=== PATIENT | female | born 1940 | race Two or more races ===

== ENCOUNTER 2017-09-29 00:11 | Observation (INO) | payer OTHER, MEDICAID ==
[2017-09-29] VITALS (14 sets, daily range): BP systolic 159–198; BP diastolic 70–90; PULSE 49–87; RESP 16–18; TEMP 97.9–98.2; O2SAT 93–99
[~2017-09-29] VITALS: Ht 154.9 cm; Wt 67.0 kg
[2017-09-29] MEDS ORDERED: METO25TA3 PO (00:32)
[2017-09-29] MEDS ORDERED: ATOR10TA15 PO (00:32)
[2017-09-29] MEDS ORDERED: ASPI-516 CHEW (00:32)
[2017-09-29] MEDS ORDERED: ASPIRIN 81 MG CHEW TAB PO ONE (01:00)
[2017-09-29] MEDS ORDERED: SODIUM CHLORIDE 0.9% FLUSH 10 ML FLUSH IVF PRN (01:00)
[2017-09-29] MEDS ORDERED: NITROGLYCERIN 0.4 MG SL 25 TABS/BTL SL ONE (01:00)
[2017-09-29 01:22] LABS: AUTOMATED NEUTROPHIL # 3.7 TH/MM3 (1.8-7.7); BASOPHIL # 0.1 TH/MM3 (0-0.2); BASOPHIL % 1.1 % (0.0-2.0); EOSINOPHIL # 0.1 TH/MM3 (0-0.4); EOSINOPHIL % 2.3 % (0.0-4.0); HEMATOCRIT 38.8 % (35.0-46.0); HEMOGLOBIN 13.3 GM/DL (11.6-15.3); LYMPH % 27.9 % (9.0-44.0); LYMPHOCYTE # 1.7 TH/MM3 (1.0-4.8); MEAN CELL VOLUME 91.4 FL (80.0-100.0); MEAN CORPUSCULAR HEMOGLOBIN 31.3 PG (27.0-34.0); MEAN CORPUSCULAR HGB CONC 34.3 % (32.0-36.0); MEAN PLATELET VOLUME 8.5 FL (7.0-11.0); MONO % 9.7 % (0.0-8.0); MONOCYTE # 0.6 TH/MM3 (0-0.9); PLATELET COUNT 192 TH/MM3 (150-450); RED BLOOD COUNT 4.24 MIL/MM3 (4.00-5.30); RED CELL DISTRIBUTION WIDTH 13.1 % (11.6-17.2); WHITE BLOOD COUNT 6.2 TH/MM3 (4.0-11.0)
--- NOTE | 2017-09-29 01:22 | PD ---
HPI Chief Complaint: Chest Pain Time Seen by Provider: 00:41 Travel History International Travel<30 days: No Contact w/Intl Traveler<30days: No Traveled to known affect area: No History of Present Illness HPI The patient is a 77-year-old female who presents to the emergency department for chest pain and shortness of breath at 3 days' duration. The patient states she had some anterior right sided chest pain that was nonradiating several days ago. The pain was described as "pain", nonradiating, and associated with shortness of breath. The patient denied any nausea, vomiting, or diaphoresis. She denies any exertional symptoms. However, she developed chest pain once again tonight with mild shortness of breath. The patient does have a history of coronary artery disease with previous CABG. The patient is currently relocating, does not have a local primary physician or manager pet. The patient does have a history of CAD, CABG, and hyperlipidemia. She denies any known history of diabetes or tobacco use. The patient denies any cough, fever, chills, or sweats. She denies any trauma to the chest wall. The patient denies recent hospitalizations, surgeries, or history of PE/DVT. She did travel to [place] via car over 2 days' duration several months ago. She denies any significant edema to lower extremities. [facility] Past Medical History Medical History: Denies Significant Hx Hx Anticoagulant Therapy: Yes (ASA) Cardiovascular Problems: Yes ([place], CABG) Past Surgical History Cardiac Surgery: Yes (CABG) Hysterectomy: Yes Social History Alcohol Use: Yes Tobacco Use: No Substance Use: No Allergies-Medications (Allergen,Severity, Reaction): Coded Allergies: No Known Allergies (Verified Allergy, Unknown, 09/29/17) Reported Meds & Prescriptions Reported Meds & Active Scripts Active Reported Aspirin 81 Mg Chew 81 Mg CHEW DAILY Metoprolol Tartrate 25 Mg Tab 25 Mg PO DAILY Atorvastatin (Atorvastatin Calcium) 10 Mg Tab 10 Mg PO HS Review of Systems Except as stated in HPI: all other systems reviewed are Neg General / Constitutional: No: Fever Cardiovascular: Positive: Chest Pain or Discomfort, No: Diaphoresis, Dyspnea on exertion Respiratory: Positive: Shortness of Breath Gastrointestinal: No: Nausea, Vomiting, Abdominal Pain Musculoskeletal: No: Weakness Neurologic: No: Dizziness Physical Exam Narrative GENERAL: Awake, alert, nontoxic-appearing 77-year-old female who appears her stated age and is in no acute respiratory distress. SKIN: Focused skin assessment warm/dry. HEAD: Atraumatic. Normocephalic. EYES: Pupils equal and round. No scleral icterus. No injection or drainage. ENT: No nasal bleeding or discharge. Mucous membranes pink and moist. NECK: Trachea midline. No JVD. CARDIOVASCULAR: Regular, bradycardic with a heart rate in the 50s. Systolic murmur noted. Well-healed sternal scar. RESPIRATORY: No accessory muscle use. Clear to auscultation. Breath sounds equal bilaterally. GASTROINTESTINAL: Abdomen soft, non-tender, nondistended. No rebound tenderness. MUSCULOSKELETAL: No obvious deformities. No clubbing. No cyanosis. No edema. Well-healed scar medial aspect right lower extremity. NEUROLOGICAL: Awake and alert. No obvious cranial nerve deficits. Motor grossly within normal limits. Normal speech. PSYCHIATRIC: Appropriate mood and affect; insight and judgment normal. Data Data Last Documented VS Vital Signs Date Time Temp Pulse Resp B/P (MAP) Pulse Ox O2 Delivery O2 Flow Rate FiO2 09/29/17 01:09 55 18 167/73 (104) 97 Room Air 09/29/17 00:11 98.2 Orders Orders Electrocardiogram (09/29/17 00:59) Ckmb (Isoenzyme) Profile (09/29/17 00:59) Complete Blood Count With Diff (09/29/17 00:59) Comprehensive Metabolic Panel (09/29/17 00:59) Magnesium (Mg) (09/29/17 00:59) Prothrombin Time / Inr (Pt) (09/29/17 00:59) Act Partial Throm Time (Ptt) (09/29/17 00:59) Troponin I (09/29/17 00:59) Chest, Single Ap (09/29/17 00:59) Ecg Monitoring (09/29/17 00:59) Bilateral Bp Monitoring (09/29/17 00:59) Iv Access Insert/Monitor (09/29/17 00:59) Oximetry (09/29/17 00:59) Oxygen Administration (09/29/17 00:59) Aspirin Chew (Aspirin Chew) (09/29/17 01:00) Sodium Chloride 0.9% Flush (Ns Flush) (09/29/17 01:00) Nitroglycerin Sl (Nitrostat Sl) (09/29/17 01:00) CKMB (09/29/17 01:10) CKMB% (09/29/17 01:10) Admit Order (Ed Use Only) (09/29/17 02:32) Labs Laboratory Tests Test 09/29/17 01:10 White Blood Count 6.2 TH/MM3 Red Blood Count 4.24 MIL/MM3 Hemoglobin 13.3 GM/DL Hematocrit 38.8 % Mean Corpuscular Volume 91.4 FL Mean Corpuscular Hemoglobin 31.3 PG Mean Corpuscular Hemoglobin Concent 34.3 % Red Cell Distribution Width 13.1 % Platelet Count 192 TH/MM3 Mean Platelet Volume 8.5 FL Neutrophils (%) (Auto) 59.0 % Lymphocytes (%) (Auto) 27.9 % Monocytes (%) (Auto) 9.7 % Eosinophils (%) (Auto) 2.3 % Basophils (%) (Auto) 1.1 % Neutrophils # (Auto) 3.7 TH/MM3 Lymphocytes # (Auto) 1.7 TH/MM3 Monocytes # (Auto) 0.6 TH/MM3 Eosinophils # (Auto) 0.1 TH/MM3 Basophils # (Auto) 0.1 TH/MM3 CBC Comment DIFF FINAL Differential Comment Prothrombin Time 10.9 SEC Prothromb Time International Ratio 1.1 RATIO Activated Partial Thromboplast Time 26.3 SEC Blood Urea Nitrogen 13 MG/DL Creatinine 0.78 MG/DL Random Glucose 99 MG/DL Total Protein 7.3 GM/DL Albumin 3.9 GM/DL Calcium Level 8.7 MG/DL Magnesium Level 1.9 MG/DL Alkaline Phosphatase 70 U/L Aspartate Amino Transf (AST/SGOT) 10 U/L Alanine Aminotransferase (ALT/SGPT) 19 U/L Total Bilirubin 0.6 MG/DL Sodium Level 144 MEQ/L Potassium Level 3.5 MEQ/L Chloride Level 109 MEQ/L Carbon Dioxide Level 25.5 MEQ/L Anion Gap 10 MEQ/L Estimat Glomerular Filtration Rate 71 ML/MIN Total Creatine Kinase 105 U/L Creatine Kinase MB 1.2 NG/ML Troponin I LESS THAN 0.02 NG/ML MDM Medical Decision Making Medical Screen Exam Complete: Yes Emergency Medical Condition: Yes Medical Record Reviewed: Yes Interpretation(s) EKG reveals sinus bradycardia with first-degree AV block. Q wave noted in lead V2. Last Impressions Chest X-Ray 09/29/17 0059 Signed Impressions: Service Date/Time: Friday, September 29, 2017 01:14 - CONCLUSION: No acute disease. Sin Chapman MD Laboratory Tests Test 09/29/17 01:10 White Blood Count 6.2 TH/MM3 Red Blood Count 4.24 MIL/MM3 Hemoglobin 13.3 GM/DL Hematocrit 38.8 % Mean Corpuscular Volume 91.4 FL Mean Corpuscular Hemoglobin 31.3 PG Mean Corpuscular Hemoglobin Concent 34.3 % Red Cell Distribution Width 13.1 % Platelet Count 192 TH/MM3 Mean Platelet Volume 8.5 FL Neutrophils (%) (Auto) 59.0 % Lymphocytes (%) (Auto) 27.9 % Monocytes (%) (Auto) 9.7 % Eosinophils (%) (Auto) 2.3 % Basophils (%) (Auto) 1.1 % Neutrophils # (Auto) 3.7 TH/MM3 Lymphocytes # (Auto) 1.7 TH/MM3 Monocytes # (Auto) 0.6 TH/MM3 Eosinophils # (Auto) 0.1 TH/MM3 Basophils # (Auto) 0.1 TH/MM3 CBC Comment DIFF FINAL Differential Comment Prothrombin Time 10.9 SEC Prothromb Time International Ratio 1.1 RATIO Activated Partial Thromboplast Time 26.3 SEC Blood Urea Nitrogen 13 MG/DL Creatinine 0.78 MG/DL Random Glucose 99 MG/DL Total Protein 7.3 GM/DL Albumin 3.9 GM/DL Calcium Level 8.7 MG/DL Magnesium Level 1.9 MG/DL Alkaline Phosphatase 70 U/L Aspartate Amino Transf (AST/SGOT) 10 U/L Alanine Aminotransferase (ALT/SGPT) 19 U/L Total Bilirubin 0.6 MG/DL Sodium Level 144 MEQ/L Potassium Level 3.5 MEQ/L Chloride Level 109 MEQ/L Carbon Dioxide Level 25.5 MEQ/L Anion Gap 10 MEQ/L Estimat Glomerular Filtration Rate 71 ML/MIN Total Creatine Kinase 105 U/L Creatine Kinase MB 1.2 NG/ML Troponin I LESS THAN 0.02 NG/ML Differential Diagnosis Differential diagnosis includes acute coronary syndrome, STEMI, pulmonary embolism, pneumonia, GERD, esophageal spasm, esophagitis. Narrative Course IV was established, labs are drawn and sent, and the patient was placed on cardiac telemetry monitoring and continuous pulse oximetry monitoring. EKG was ordered and interpreted. Chest x-ray was obtained. The patient was flagstone layer aspirin and nitroglycerin. I doubt pulmonary embolism as patient's heart rate is normal and there is no evidence of hypoxia. The patient's chest x-rays unremarkable. Initial troponin is negative. The patient is currently chest pain-free. She does have risk factors with unexplained chest pain that is been intermittent for 3 days of shortness of breath. Therefore, the patient will be 23 hour observation to the chest pain center for serial cardiac enzymes and further evaluation by cardiology for possible stress test. Physician Communication Physician Communication The patient will be 23 hour observation to the chest pain center for serial cardiac enzymes and further evaluation by cardiology for possible stress test. Diagnosis Primary Impression: Chest pain Qualified Codes: R07.9 - Chest pain, unspecified Admitting Information Admitting Physician Requests: Observation Condition: Stable Gurpreet Wolfe MD Sep 29, 2017 01:22
[2017-09-29 01:31] LABS: INTERNATIONAL NORMALIZED RATIO 1.1 RATIO; PROTHROMBIN TIME - PATIENT 10.9 SEC (9.8-11.6)
--- NOTE | 2017-09-29 01:32 | RADRPT ---
EXAM DATE/TIME: 09/29/2017 01:14 [facility] COMPARISON: No previous studies available for comparison. INDICATIONS : Chest pain. MEDICAL HISTORY : Cardiovascular disease. SURGICAL HISTORY : CABG. ENCOUNTER: Initial ACUITY: 1 day PAIN SCORE: 6/10 LOCATION: Bilateral chest FINDINGS: A single view of the chest demonstrates the lungs to be symmetrically aerated without evidence of mas s, infiltrate or effusion. The cardiomediastinal contours are unremarkable. Osseous structures are intact. Sternotomy wires noted. CONCLUSION: No acute disease. Sin Chapman MD on September 29, 2017 at 1:29 Board Certified Radiologist. This report was verified electronically.
[2017-09-29 01:38] LABS: ALBUMIN 3.9 GM/DL (3.4-5.0); ALT (GPT) 19 U/L (10-53); AST (GOT) 10 U/L (15-37); BICARBONATE 25.5 MEQ/L (21.0-32.0); BLOOD UREA NITROGEN 13 MG/DL (7-18); CALCIUM 8.7 MG/DL (8.5-10.1); CHLORIDE 109 MEQ/L (98-107); CREATININE 0.78 MG/DL (0.50-1.00); GLOMERULAR FILTRATION RATE 71 ML/MIN (>89); GLUCOSE,RANDOM 99 MG/DL (74-106); MAGNESIUM 1.9 MG/DL (1.5-2.5); SODIUM (NA) 144 MEQ/L (136-145)
[2017-09-29 01:42] LABS: ALKALINE PHOSPHATASE 70 U/L (45-117); TOTAL BILIRUBIN ADULT 0.6 MG/DL (0.2-1.0); TOTAL PROTEIN 7.3 GM/DL (6.4-8.2); TROPONIN I LESS THAN 0.02 NG/ML (0.02-0.05)
[2017-09-29] MEDS ORDERED: NITROGLYCERIN 0.4 MG SL 25 TABS/BTL SL PRN (02:45)
[2017-09-29] MEDS ORDERED: SODIUM CHLORIDE 0.9% FLUSH 10 ML FLUSH IV FLUSH PRN (02:45)
[2017-09-29] MEDS ORDERED: ONDANSETRON HCL 4 MG/2 ML VIAL IV PUSH PRN (02:45)
[2017-09-29] MEDS ORDERED: ACETAMINOPHEN 500 MG CPLT PO PRN (02:45)
[2017-09-29] MEDS ORDERED: ACETAMINOPHEN/HYDROcodone 325 MG/7.5 MG TAB PO PRN (02:45)
[2017-09-29] MEDS ORDERED: MORPHINE SULFATE 2 MG/ML INJ IV PUSH PRN (02:45)
[2017-09-29] MEDS: SODIUM CHLOR 0.9% 1000 ML INJ 1,000 ML IV SCH ×3 (04:01→15:51)
[2017-09-29 05:12] LABS: TROPONIN I LESS THAN 0.02 NG/ML (0.02-0.05)
[2017-09-29] MEDS ORDERED: METOPROLOL TARTRATE 25 MG TAB PO ONE (05:15)
[2017-09-29 08:18] LABS: TROPONIN I LESS THAN 0.02 NG/ML (0.02-0.05)
[2017-09-29] MEDS ORDERED: SODIUM CHLORIDE 0.9% FLUSH 10 ML FLUSH IV FLUSH SCH (09:00)
[2017-09-29] MEDS ORDERED: METOPROLOL TARTRATE 25 MG TAB PO SCH (09:00)
[2017-09-29] MEDS ORDERED: ASPIRIN 325 MG TAB PO SCH (09:00)
[2017-09-29] MEDS ORDERED: cloNIDine HCL 0.1 MG TAB PO ONE (09:00)
[2017-09-29] MEDS ORDERED: DONE5TAB7 PO (09:21)
[2017-09-29] MEDS ORDERED: METO1TAB9 PO (09:21)
[2017-09-29] MEDS ORDERED: NITR1SUB3 SL (09:21)
[2017-09-29] MEDS ORDERED: DONEPEZIL HCL 5 MG TAB PO SCH (09:30)
[2017-09-29] MEDS ORDERED: METOPROLOL SUCCINATE 50 MG EXTENDED RELEASE TAB PO SCH (09:30)
--- NOTE | 2017-09-29 11:24 | HHI.HP ---
HPI Primary Care Physician Unknown Chief Complaint Chest pain and shortness of breath History of Present Illness This is a 77-year-old female with history of CAD with a three-vessel bypass 2 years ago while living in [place] that presents to ED with her with a complaint of shortness of breath and chest pain. Her states he had not heard a complaint of chest pain until just now. She has been complaining of shortness of breath over last few days and primarily at rest. With activity she has not really noticed the shortness of breath. She states that last evening she developed a right-sided chest discomfort that she describes as an ache and it lasted for several hours. She was short of breath with it. No nausea or diaphoresis. She can't recall specifically the symptoms that led to her bypass but does not believe the chest discomfort that she's having now with similar does not recall being terribly short of breath when eating the bypass either. Cannot recall having a stress test or heart catheterization since her bypass. Denies recent illness. Denies fevers or chills. Reports compliance with her medications. Review of Systems General: Patient denies fevers, chills recent, and recent travel HEENT: Patient denies headache, sore throat, difficulty swallowing. Cardiovascular: Has the chest discomfort as mentioned above. Denies sensation of heart beating rapidly or irregularly. No syncope. Denies diaphoresis. Respiratory: She has been short of breath. Denies inspirational chest discomfort. Denies coughing wheezing or hemoptysis. GI: Patient denies nausea, vomiting, diarrhea, abdominal pain, bloody stools. Musculoskeletal: Patient denies joint pain or edema. Denies calf pain or edema. Neurovascular: Patient denies numbness, tingling, weakness in extremities. Denies headache. Endocrine: Denies polyuria and polydipsia. Hematologic: Denies easy bruising. Skin: Denies rash or itching. Past Family Social History Allergies: Coded Allergies: No Known Allergies (Verified Allergy, Unknown, 09/29/17) Past Medical History CAD with a 3 vessel bypass 2 years ago. Hypertension and hyperlipidemia. Denies diabetes. Past Surgical History Four-vessel bypass 2 years ago. Reported Medications Reported Meds & Active Scripts Active Reported Nitroglycerin SL (Nitroglycerin) 0.4 Mg Subl 0.4 Mg SL DIRECTED PRN ONE TABLET UNDER THE TONGUE NEEDED FOR CHEST PAIN, MAY REPEAT EVERY FIVE MINUTES FOR A TOTAL OF 3 DOSES OR CALL 911 IF NO RELIEF Donepezil 5 Mg Tab 5 Mg PO BID Metoprolol Succinate ER 24 HR (Metoprolol Succinate) 50 Mg Tab 50 Mg PO DAILY Aspirin 81 Mg Chew 81 Mg CHEW DAILY Atorvastatin (Atorvastatin Calcium) 10 Mg Tab 20 Mg PO HS Active Ordered Medications Current Medications Medications (Trade) Dose Ordered Sig/Feli Route Start Time Stop Time Status Last Admin (NS Flush) 2 ml UNSCH PRN IVF 09/29/17 01:00 Sodium Chloride 1,000 ml @ 100 mls/hr Q10H IV 09/29/17 02:36 09/29/17 04:01 (NS Flush) 2 ml UNSCH PRN IV FLUSH 09/29/17 02:45 (NS Flush) 2 ml BID IV FLUSH 09/29/17 09:00 (Tylenol) 500 mg Q4H PRN PO 09/29/17 02:45 ([place] 7.5-325 Mg) 1 tab Q4H PRN PO 09/29/17 02:45 (Morphine Inj) 2 mg Q4H PRN IV PUSH 09/29/17 02:45 (Zofran Inj) 4 mg Q6H PRN IV PUSH 09/29/17 02:45 (Nitrostat Sl) 0.4 mg Q5M PRN SL 09/29/17 02:45 (Aspirin Chew) 81 mg DAILY CHEW 09/30/17 09:00 (Lipitor) 20 mg HS PO 09/29/17 21:00 (Aricept) 5 mg BID PO 09/29/17 09:30 (Toprol Xl) 50 mg DAILY PO 09/29/17 09:30 Family History Denies family history of CAD. Social History Smoking 40 years ago. Denies alcohol or illicit drugs. Physical Exam Vital Signs Vital Signs Date Time Temp Pulse Resp B/P (MAP) Pulse Ox O2 Delivery O2 Flow Rate FiO2 09/29/17 10:22 56 09/29/17 08:31 180/90 (120) 09/29/17 07:29 98.0 56 18 99 09/29/17 07:14 165/78 (107) 09/29/17 05:02 60 09/29/17 04:41 97.9 61 18 198/86 (123) 99 09/29/17 02:41 99 21 09/29/17 01:09 55 18 167/73 (104) 97 Room Air 09/29/17 01:08 59 18 183/74 (110) 97 Room Air 09/29/17 01:07 97 Room Air 09/29/17 01:07 18 97 Room Air 09/29/17 00:57 97 Room Air 09/29/17 00:11 98.2 55 16 159/70 (99) 98 Room Air Physical Exam GENERAL: This is a well-nourished, well-developed patient, in no apparent distress. Patient speaks in clear complete sentences. Patient is pleasant. HEENT: Head is atraumatic and normocephalic. Neck is supple without lymphadenopathy and trachea is midline. No JVD or carotid bruits. CARDIOVASCULAR: A vibratory unusual systolic murmur around the second heart sound best heard left sternal border. Sounds like a "BOINK." Regular rate and rhythm without gallops, or rubs. RESPIRATORY: Clear to auscultation. Breath sounds equal bilaterally. No wheezes , rales, or rhonchi. Chest wall is nontender. No use of accessory muscles. GASTROINTESTINAL: Abdomen is nontender, nondistended. Abdomen soft. No obvious pulsatile mass or bruit. No CVA tenderness. Strong femoral pulses bilaterally. Normal bowel sounds in all quadrants. MUSCULOSKELETAL: Patient is moving upper and lower extremities freely. No calf tenderness or edema, no Homans sign. Strong pulses in upper and lower extremities. NEUROLOGICAL: Patient is alert and oriented. Cranial nerves 2-12 are grossly intact. No focal deficits and speech is clear. SKIN: No rash and turgor is normal. Laboratory Laboratory Tests Test 09/29/17 01:10 09/29/17 04:15 09/29/17 07:20 White Blood Count 6.2 Red Blood Count 4.24 Hemoglobin 13.3 Hematocrit 38.8 Mean Corpuscular Volume 91.4 Mean Corpuscular Hemoglobin 31.3 Mean Corpuscular Hemoglobin Concent 34.3 Red Cell Distribution Width 13.1 Platelet Count 192 Mean Platelet Volume 8.5 Neutrophils (%) (Auto) 59.0 Lymphocytes (%) (Auto) 27.9 Monocytes (%) (Auto) 9.7 Eosinophils (%) (Auto) 2.3 Basophils (%) (Auto) 1.1 Neutrophils # (Auto) 3.7 Lymphocytes # (Auto) 1.7 Monocytes # (Auto) 0.6 Eosinophils # (Auto) 0.1 Basophils # (Auto) 0.1 CBC Comment DIFF FINAL Differential Comment Prothrombin Time 10.9 Prothromb Time International Ratio 1.1 Activated Partial Thromboplast Time 26.3 Blood Urea Nitrogen 13 Creatinine 0.78 Random Glucose 99 Total Protein 7.3 Albumin 3.9 Calcium Level 8.7 Magnesium Level 1.9 Alkaline Phosphatase 70 Aspartate Amino Transf (AST/SGOT) 10 Alanine Aminotransferase (ALT/SGPT) 19 Total Bilirubin 0.6 Sodium Level 144 Potassium Level 3.5 Chloride Level 109 Carbon Dioxide Level 25.5 Anion Gap 10 Estimat Glomerular Filtration Rate 71 Total Creatine Kinase 105 126 149 Creatine Kinase MB 1.2 1.2 1.0 Troponin I LESS THAN 0.02 LESS THAN 0.02 LESS THAN 0.02 Result Diagram: 09/29/1710909/29/17 011 Imaging Last 48 hours Impressions Chest X-Ray 09/29/17 0059 Signed Impressions: Service Date/Time: Friday, September 29, 2017 01:14 - CONCLUSION: No acute disease. Sin Chapman MD Course EKGs and in sinus rhythm and sinus bradycardia without significant ST segment depressions or elevations. Caprini VTE Risk Assessment Caprini VTE Risk Assessment: Mod/High Risk (score >= 2) Caprini Risk Assessment Model Point Value = 1 Point Value = 2 Point Value = 3 Point Value = 5 Age 41-60 Minor surgery BMI > 25 kg/m2 Swollen legs Varicose veins or History of unexplained or recurrent spontaneous Oral contraceptives or hormone replacement Sepsis (< 1 month) Serious lung disease, including pneumonia (< 1 month) Abnormal pulmonary function Acute myocardial infarction Congestive heart failure (< 1 month) History of inflammatory bowel disease Medical patient at bed rest Age 61-74 Arthroscopic surgery Major open surgery (> 45 min) Laparoscopic surgery (> 45 min) Malignancy Confined to bed (> 72 hours) Immobilizing plaster cast Central venous access Age >= 75 History of VTE Family history of VTE Factor V Leiden Prothrombin [id number] Lupus anticoagulant Anticardiolipin antibodies Elevated serum homocysteine Heparin-induced thrombocytopenia Other congenital or acquired thrombophilia Stroke (< 1 month) Elective arthroplasty Hip, pelvis, or leg fracture Acute spinal cord injury (< 1 month) Prophylaxis Regimen Total Risk Factor Score Risk Level Prophylaxis Regimen 0-1 Low Early ambulation 2 Moderate Order ONE of the following: *Sequential Compression Device (SCD) *Heparin 5000 units SQ BID 3-4 Higher Order ONE of the following medications: *Heparin 5000 units SQ TID *Enoxaparin/Lovenox 40 mg SQ daily (WT < 150 kg, CrCl > 30 mL/min) *Enoxaparin/Lovenox 30 mg SQ daily (WT < 150 kg, CrCl > 10-29 mL/min) *Enoxaparin/Lovenox 30 mg SQ BID (WT < 150 kg, CrCl > 30 mL/min) AND/OR *Sequential Compression Device (SCD) 5 or more Highest Order ONE of the following medications: *Heparin 5000 units SQ TID (Preferred with Epidurals) *Enoxaparin/Lovenox 40 mg SQ daily (WT < 150 kg, CrCl > 30 mL/min) *Enoxaparin/Lovenox 30 mg SQ daily (WT < 150 kg, CrCl > 10-29 mL/min) *Enoxaparin/Lovenox 30 mg SQ BID (WT < 150 kg, CrCl > 30 mL/min) AND *Sequential Compression Device (SCD) Assessment and Plan Assessment and Plan * Chest pain: Patient has had serial cardiac enzymes and EKGs for ruling out purposes. She was seen by Dr. Bee of cardiology in the chest pain center and will undergo a Lexiscan myocardial perfusion stress test. Patient discharged home if stress test is nonischemic with instructions to follow-up with PCP and with cardiology. Return to ED for interval issues. * CAD: Patient with history of CAD with a three-vessel bypass. Will be reassessed with stress testing. Patient should follow-up with cardiology. The group that she would follow-up with would be the [facility]. * Hypertension: Continue current medication. * Hyperlipidemia: Continue current medication. Patient is stable at this time. She is agreeable to this plan. Dread León Sep 29, 2017 11:24
--- NOTE | 2017-09-29 13:28 | EKG ---
Date Performed: 09/29/2017 Time Performed: 07:19:19 PTAGE: 77 years EKG: SINUS BRADYCARDIA WITH FIRST DEGREE AV BLOCK BORDERLINE LEFT AXIS DEVIATION PROLONGED QT IN TERVAL ABNORMAL ECG PREVIOUS TRACING : 09/29/2017 04.51 Since previous tracing, no significant change noted DOCTOR: Burt Bee Interpretating Date/Time 09/29/2017 13:26:45
--- NOTE | 2017-09-29 13:35 | EKG ---
Date Performed: 09/29/2017 Time Performed: 04:51:10 PTAGE: 77 years EKG: SINUS BRADYCARDIA WITH FIRST DEGREE AV BLOCK BORDERLINE LEFT AXIS DEVIATION ABNORMAL ECG Si nce PREVIOUS TRACING , no significant change noted DOCTOR: Burt Bee Interpretating Date/Time 09/29/2017 13:34:10
--- NOTE | 2017-09-29 13:41 | EKG ---
Date Performed: 09/29/2017 Time Performed: 01:17:38 PTAGE: 77 years EKG: SINUS BRADYCARDIA WITH FIRST DEGREE AV BLOCK Poor R wave progression ABNORMAL ECG NO PREVIOUS TRACING DOCTOR: Burt Bee Interpretating Date/Time 09/29/2017 13:40:39
[2017-09-29] MEDS ORDERED: REGADENOSON INJ 0.4 MG/5 ML SYR ONE (14:19)
--- NOTE | 2017-09-29 15:40 | RADRPT ---
EXAM DATE/TIME: 09/29/2017 14:00 [facility] COMPARISON: No previous studies available for comparison. INDICATIONS : Chest pain. Angina. DOSE: 25.3 mCi Tc99m Myoview at stress. 8.6 mCi Tc99m Myoview at rest. 0.4 mg Lexiscan STRESS SYMPTOMS: Shortness of breath, chest pressure. EJECTION FRACTION: 66% MEDICAL HISTORY : Hypertension. Myocardial infarction. Cardiovascular disease Smoker. SURGICAL HISTORY : CABG Hysterectomy. ENCOUNTER: Initial ACUITY: 1 day PAIN SCALE: 0/10 LOCATION: Bilateral chest TECHNIQUE: The patient underwent pharmacologic stress with infusion of prescribed dose. Continuous ECG tracing was monitored during stress. Gated SPECT imaging was performed after stress and conventional SPECT i maging was performed at rest. The examination was performed on a SPECT/CT scanner, both attenuation and non-corrected datasets were reviewed. FINDINGS: DISTRIBUTION: The maximum perfused segment at stress is in the septal wall. PERFUSION STUDY: The pattern of perfusion at stress is within normal limits. GATED STUDY: There is intact wall motion and thickening without hypokinetic or dyskinetic segments. CONCLUSION: No reversible perfusion defects or focal wall motion abnormalities identified. RISK CATEGORY: 1- Low Risk. Ervin Andrews MD on September 29, 2017 at 15:36 Board Certified Radiologist. This report was verified electronically.
--- NOTE | 2017-09-29 16:10 | HHI.DCPOC ---
Discharge Care Plan Diagnosis: (1) Chest pain (2) Hypertension (3) Hyperlipidemia (4) CAD (coronary artery disease) (5) Hx of CABG Goals to Promote Your Health * To prevent worsening of your condition and complications * To maintain your health at the optimal level Directions to Meet Your Goals Take your medications as prescribed Follow your dietary instruction Follow activity as directed Keep your appointments as scheduled Take your immunizations and boosters as scheduled If your symptoms worsen call your PCP, if no PCP go to Urgent Care Center or Emergency Room Smoking is Dangerous to Your Health. Avoid second hand smoke Call the 24-hour hour crisis hotline for domestic abuse at Dread León Sep 29, 2017 16:10
[2017-09-29] MEDS ORDERED: ATORVASTATIN 10 MG TAB PO SCH (21:00)
[2017-09-30] MEDS ORDERED: ASPIRIN 81 MG CHEW TAB CHEW SCH (09:00)
[2017-09-30] MEDS ORDERED: METOPROLOL TARTRATE 25 MG TAB PO SCH (09:00)
--- NOTE | 2017-09-30 10:50 | TR ---
Date Performed: 09/29/2017 Time Performed: 14:23:40 DOCTOR: Burt Bee DRUG LIST: CLINICAL HISTORY: ANGINA REASON FOR TEST: REASON FOR ENDING: OBSERVATION: CONCLUSION: Lexiscan stress test was performed under standard four minute protocol. Radionuclid e was injected one minute prior to ending the test. No electrocardiographic abormalities were present to suggest ischemia. Nuclear imaging and interpretation are pending. COMMENTS:
== END 2017-09-29 16:29 | disposition home or self-care (01) ==
LOC: NEPC 00:11 → NEDA 02:34 → NEPHCDU 03:28
PROVIDERS: ADMIT Internal Medicine Cardiovascular Disease; ATTEND Internal Medicine Cardiovascular Disease
DX: R07.9 Chest pain, unspecified (principal); I10 Essential (primary) hypertension; E78.5 Hyperlipidemia, unspecified; I25.10 Atherosclerotic heart disease of native coronary artery without angina pectoris; R06.02 Shortness of breath; Z95.1 Presence of aortocoronary bypass graft; Z79.82 Long term (current) use of aspirin
CPT/HCPCS: 71010; 78452; 80053; 82550; 82552; 83735; 84484; 85025; 85610; 85730; 93005; 93017; 96360; 99285; A9502; G0378; J2785; J7030

== ENCOUNTER → 2018-01-24 | Outpatient (CLI) | payer MEDICARE ==
[~2018-01-24] MED LIST: ASPI-516 CHEW; ATOR10TA15 PO; DONE5TAB7 PO; METO1TAB9 PO; NITR1SUB3 SL
[2018-01-24 10:01] LABS: BACTERIA, URINE RARE /hpf; BILIRUBIN, URINE NEG (NEG); BLOOD, URINE NEG (NEG); GLUCOSE,URINE NEG (NEG); KETONE, URINE NEG (NEG); MUCUS URINE FEW /lpf (OCC); NITRITE,URINE NEG (NEG); SQUAMOUS EPITHELIAL CELL URINE 2 /hpf (0-5); URINE COLOR LIGHT-YELLOW (YELLW/STRAW); URINE LEUKOCYTE ESTERASE NEG (NEG)
[2018-01-24 10:05] LABS: AUTOMATED NEUTROPHIL # 3.4 TH/MM3 (1.8-7.7); BASOPHIL # 0.1 TH/MM3 (0-0.2); BASOPHIL % 1.1 % (0.0-2.0); EOSINOPHIL # 0.1 TH/MM3 (0-0.4); EOSINOPHIL % 2.2 % (0.0-4.0); HEMATOCRIT 41.1 % (35.0-46.0); HEMOGLOBIN 13.8 GM/DL (11.6-15.3); LYMPH % 17.9 % (9.0-44.0); LYMPHOCYTE # 0.9 TH/MM3 (1.0-4.8); MEAN CELL VOLUME 91.7 FL (80.0-100.0); MEAN CORPUSCULAR HEMOGLOBIN 30.9 PG (27.0-34.0); MEAN CORPUSCULAR HGB CONC 33.7 % (32.0-36.0); MEAN PLATELET VOLUME 8.6 FL (7.0-11.0); MONO % 9.9 % (0.0-8.0); MONOCYTE # 0.5 TH/MM3 (0-0.9); NEUT % 68.9 % (16.0-70.0); PLATELET COUNT 210 TH/MM3 (150-450); RED BLOOD COUNT 4.48 MIL/MM3 (4.00-5.30)
[2018-01-24 10:20] LABS: RHEUMATOID FACTOR SCREEN NEGATIVE (NEGATIVE)
[2018-01-24 10:25] LABS: ALBUMIN 4.2 GM/DL (3.4-5.0); AST (GOT) 10 U/L (15-37); BICARBONATE 30.4 MEQ/L (21.0-32.0); BLOOD UREA NITROGEN 14 MG/DL (7-18); CALCIUM 9.5 MG/DL (8.5-10.1); CHLORIDE 105 MEQ/L (98-107); CHOLESTEROL 194 MG/DL (120-200); CREATININE 0.82 MG/DL (0.50-1.00); GLOMERULAR FILTRATION RATE 67 ML/MIN (>89); GLUCOSE,FASTING 90 MG/DL (74-99); SODIUM (NA) 142 MEQ/L (136-145)
[2018-01-24 10:30] LABS: ALKALINE PHOSPHATASE 64 U/L (45-117); ALT (GPT) 20 U/L (10-53); CHOLESTEROL/ HDL RATIO 3.75 RATIO; HDL CHOLESTEROL 51.7 MG/DL (40.0-60.0); LDL CHOLESTEROL 118 MG/DL (0-99); TOTAL BILIRUBIN ADULT 0.8 MG/DL (0.2-1.0); TOTAL PROTEIN 7.8 GM/DL (6.4-8.2); TRIGLYCERIDES 121 MG/DL (42-150)
[2018-01-24 10:48] LABS: WESTERGREN SEDIMENTATION RATE 15 mm/hr (0-30)
[2018-01-24 10:51] LABS: C-REACTIVE PROTEIN LESS THAN 0.29 MG/DL (0.00-0.30); FREE T3 2.77 PG/ML (2.18-3.98); THYROXINE (T4) 8.3 MCG/DL (4.8-13.9)
[2018-01-24 11:05] LABS: FOLATE GREATER THAN 20.0 NG/ML (3.1-17.5)
[2018-01-24 18:43] LABS: HEMOGLOBIN A1C 5.5 % (4.3-6.0)
== END ==
LOC: PLAB 07:52
DX: E56.9 Vitamin deficiency, unspecified (principal); E13.40 Other specified diabetes mellitus with diabetic neuropathy, unspecified; R42 Dizziness and giddiness; M46.90 Unspecified inflammatory spondylopathy, site unspecified; E03.9 Hypothyroidism, unspecified; I77.6 Arteritis, unspecified; I10 Essential (primary) hypertension; E78.5 Hyperlipidemia, unspecified
CPT/HCPCS: 36415; 80053; 80061; 81001; 82550; 82607; 82746; 83036; 84436; 84443; 84481; 85025; 85652; 86038; 86140; 86430